=== PATIENT | male | born 1990 | race Two or more races ===

== ENCOUNTER 2018-10-15 11:41 | Emergency (ER) | payer SELFPAY ==
[~2018-10-15] VITALS: Ht 172.7 cm; Wt 95.6 kg
--- NOTE | 2018-10-15 12:08 | NUR ---
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
[2018-10-15] MEDS ORDERED: MORPHINE SULFATE 4 MG/ML, 1ML ONE (12:26)
[2018-10-15] MEDS ORDERED: ONDANSETRON 2MG/ML, 2ML ONE (12:26)
[2018-10-15] MEDS ORDERED: MORPHINE SULFATE 4 MG/ML, 1ML IVPush PRN (12:30)
[2018-10-15] MEDS ORDERED: ONDANSETRON 2MG/ML, 2ML IVPush ONE (12:30)
[2018-10-15] MEDS ORDERED: SODIUM CHLORIDE 0.9% 1,000ML IVBOLUS ONE (12:30)
[2018-10-15 12:48] LABS: BASOPHILS # (AUTO) 0.02 x10^3/uL (0-0.1); BASOPHILS % (AUTO) 0 % (0-1); EOSINOPHILS # (AUTO) 0.11 x10^3/uL (0-0.4); EOSINOPHILS % (AUTO) 1 % (1-7); LYMPHOCYTES # (AUTO) 2.53 x10^3/uL (1-3.4); LYMPHOCYTES % (AUTO) 24 % (22-44); MD NO; MEAN CORPUSCULAR HEMOGLOBIN 31.1 pg (27.5-34.5); MEAN CORPUSCULAR HGB CONC 33.8 g/dL (33.2-36.2); MEAN CORPUSCULAR VOLUME 91.8 fL (81-97); MEAN PLATELET VOLUME 8.8 fL (7.4-10.4); MONOCYTES # (AUTO) 0.46 x10^3/uL (0.2-0.8); MONOCYTES % (AUTO) 4 % (2-9); NEUTROPHILS # (AUTO) 7.34 x10^3/uL (1.8-6.8); NEUTROPHILS % (AUTO) 70 % (42-75); PLATELET COUNT 294 x10^3/uL (130-400); RED CELL DISTRIBUTION WIDTH 12.2 % (9.4-14.8)
[2018-10-15 13:00] LABS: INTERNATIONAL NORMALIZED RATIO 1.01 (0.93-1.1); PROTHROMBIN TIME 10.6 Seconds (9.6-11.5)
[2018-10-15 13:01] LABS: ALANINE AMINOTRANSFERASE 45 U/L (12-78); ALBUMIN 4.3 g/dL (3.4-5.0); ANION GAP 7 mmol/L (5-15); CALCIUM 8.7 mg/dL (8.5-10.1); CHLORIDE 111 mmol/L (98-107); CREATININE 1.36 mg/dL (0.7-1.3)
--- NOTE | 2018-10-15 13:02 | NUR ---
IV ESTABLISHED AND PT MEDICATED PER AUG, AWAITING CT SCAN. PT RESITING IN [place], HE STATES "I'M ALL ALONE HERE AND IF I KEEP DOING COCAINE I WILL BE ALONE FOREVER", RN EDUCATED PT ABOUT ADDICTION TREATMENT CENTERS. ROSE.
[2018-10-15 13:05] LABS: ALKALINE PHOSPHATASE 80 U/L (45-117); BILIRUBIN,TOTAL 0.9 mg/dL (0.2-1.0); TOTAL PROTEIN 7.6 g/dL (6.4-8.2); TROPONIN I < 0.015 ng/mL (0.000-0.045)
[2018-10-15] MEDS ORDERED: OMNIPAQUE 350 MG/ML, 100ML BOTTLE ONE (13:44)
--- NOTE | 2018-10-15 14:02 | NUR ---
PT RETURNED FROM CT, ON MONITOR, NO NEEDS AT THIS TIME. CALL LIGHT WITHIN REACH
[2018-10-15] MEDS ORDERED: MAALOX/HYOSCYAMINE/LIDOCAINE 45 ML BTL ONE (14:45)
[2018-10-15] MEDS ORDERED: PROMETHAZINE 25 MG/ML, 1ML ONE (14:45)
[2018-10-15] MEDS ORDERED: FAMOTIDINE 20 MG/2 ML ONE (14:46)
[2018-10-15 14:54] VITALS: BP 147/96
--- NOTE | 2018-10-15 14:55 | NUR ---
PT MEDICATED PER MAR, PT GIVEN LIST OF DRUG/ALCOHOL TREATMENT CENTERS
[2018-10-15] MEDS ORDERED: FAMOTIDINE 20 MG/2 ML IVP ONE (15:00)
[2018-10-15] MEDS ORDERED: MAALOX/HYOSCYAMINE/LIDOCAINE 45 ML BTL PO ONE (15:00)
[2018-10-15] MEDS ORDERED: PROMETHAZINE 25 MG/ML, 1ML IM ONE (15:00)
== END 2018-10-15 15:18 | disposition home or self-care (01) ==
LOC: ED 14:23
DX: R11.2 Nausea with vomiting, unspecified (principal); R19.7 Diarrhea, unspecified; E86.0 Dehydration; F10.20 Alcohol dependence, uncomplicated
CPT/HCPCS: 36415; 71045; 74177; 80053; 83690; 84484; 85025; 85610; 85730; 86677; 93005; 96361; 96372; 96374; 96375; 99284; J2405; J2550; J3490; J7030; Q9967